=== PATIENT | female | born 1965 | race African-American/Black ===

== ENCOUNTER 2018-09-20 06:48 | Day surgery (SDC) | payer OTHER ==
[2018-09-19 12:59] VITALS: BMI 23.0
[2018-09-20] MEDS: oxyCODONE HCL 10 MG SUSTAINED ACTING TABLET PO ONE ×2 (07:00→08:30)
[2018-09-20] MEDS ORDERED: TRANEXAMIC ACID 1000 MG/10 ML VIAL IVPUSH ONE ×2 (07:14)
[2018-09-20] MEDS ORDERED: CEFAZOLIN 1 GM/D5W 50 ML IVPB ONE (07:14)
[2018-09-20 07:52] VITALS: BP 124/74; PULSE 96; TEMP 97.8
[2018-09-20] MEDS ORDERED: oxyCODONE HCL 10 MG SUSTAINED ACTING TABLET ONE (08:32)
[2018-09-20] MEDS ORDERED: ONDANSETRON *ODT* 4 MG TABLET ONE (12:28)
== END 2018-09-20 13:00 | disposition home or self-care (01) ==
LOC: UNDOADMIN 06:48 → FASUSAT 06:48 → FM/S 06:48 → EDSTATUS 12:00 → FASUSAT 13:00
PROVIDERS: ATTEND Orthopaedic Surgery Orthopaedic Surgery of the Spine
PROC: 0SRD0J9 Replacement of Left Knee Joint with Synthetic Substitute, Cemented, Open Approach (ICD-10-PCS; principal; 2018-09-20)
DX: M17.0 Bilateral primary osteoarthritis of knee (principal); Z53.09 Procedure and treatment not carried out because of other contraindication
CPT/HCPCS: Q0162